=== PATIENT | male | born 1970 | race Caucasian/White ===

== ENCOUNTER 2016-09-21 18:43 | Emergency (ER) | payer OTHER | END 2016-09-21 20:46 | disposition home or self-care (01) | LOC: ER1 18:43 | DX: M51.26 Other intervertebral disc displacement, lumbar region (principal); I10 Essential (primary) hypertension; I25.10 Atherosclerotic heart disease of native coronary artery without angina pectoris; F17.210 Nicotine dependence, cigarettes, uncomplicated; Z88.2 Allergy status to sulfonamides; Z79.02 Long term (current) use of antithrombotics/antiplatelets; Z79.899 Other long term (current) drug therapy; Z79.891 Long term (current) use of opiate analgesic | CPT/HCPCS: 72131; 96372; 99284; J1100; J1885 ==

== ENCOUNTER → 2020-12-28 | Outpatient (CLI) | payer MEDICARE | LOC: HEART 5 11:43 | DX: J43.2 Centrilobular emphysema (principal); R94.2 Abnormal results of pulmonary function studies; F17.210 Nicotine dependence, cigarettes, uncomplicated | CPT/HCPCS: 94060 ==